=== PATIENT | female | born 1975 | race Caucasian/White ===

== ENCOUNTER → 2022-07-28 | Outpatient (CLI) | payer OTHER ==
[2022-07-30 19:07] LABS: HPV 16 Negative (Negative); HPV 18 Negative (Negative); HPV OTHER HR TYPES Positive (Negative)
== END | disposition home or self-care (01) ==
LOC: LAB SHORT 09:00 → LAB 09:00
PROVIDERS: Family Medicine
DX: Z01.419 Encounter for gynecological examination (general) (routine) without abnormal findings (principal)
CPT/HCPCS: 87624; 87625; 88142

== ENCOUNTER → 2022-10-28 | Outpatient (CLI) | payer OTHER ==
[2022-10-30 13:11] LABS: COTININE Negative ng/mL (Cutoff=300)
== END ==
LOC: LAB SHORT 11:50 → LAB 11:50 → EDSTATUS 10-27 08:30 → LAB FUT 10-27 08:30
PROVIDERS: Podiatrist Foot & Ankle Surgery
DX: Z87.891 Personal history of nicotine dependence (principal)

== ENCOUNTER 2022-12-28 11:25 | Day surgery (SDC) | payer OTHER ==
[~2022-12-28] VITALS: Ht 180.3 cm; Wt 82.1 kg
[2022-12-28] MEDS ORDERED: NAPROXEN500 MG PO (12:04)
[2022-12-28] MEDS ORDERED: TRAZ150T57 PO (12:04)
[2022-12-28] MEDS ORDERED: GABAPENTIN600 MG PO (12:04)
[2022-12-28] MEDS ORDERED: Methocarbamol500 MG PO (12:04)
[2022-12-28] MEDS ORDERED: SUMA6I SC (12:05)
[2022-12-28] MEDS ORDERED: ONDA4 PO (12:06)
[2022-12-28] MEDS ORDERED: OMEP20ER PO (12:06)
[2022-12-28] MEDS ORDERED: VARENICLINE TART1 M2 PO (12:10)
--- NOTE | 2022-12-28 13:16 | NUR ---
12/28/22 1316 THOR AIKEN 0.15MG OF EPI ADDED TO 30MLS OF ROPIVACAINE 0.5% TO CREATE A LOCAL SOLUTION OF ROPIVACAINE 0.5% WITH EPI 1:200,000.
--- NOTE | 2022-12-28 15:52 | NUR ---
12/28/22 1552 Manpreet Wheatley FENTANYL 25MCG GIVEN AT 1550 FOR LEFT FOOT PAIN AT 04/19.
== END 2022-12-28 17:27 | disposition home or self-care (01) ==
LOC: ORSCSDS 11:25
PROVIDERS: Podiatrist Foot & Ankle Surgery
PROC: 0SGJ04Z Fusion of Left Tarsal Joint with Internal Fixation Device, Open Approach (ICD-10-PCS; principal; 2022-12-28 12:45)
PROC: 0L8P0ZZ Division of Left Lower Leg Tendon, Open Approach (ICD-10-PCS; principal; 2022-12-28 12:45)
DX: M21.42 Flat foot [pes planus] (acquired), left foot (principal); M79.672 Pain in left foot; M19.072 Primary osteoarthritis, left ankle and foot; M24.572 Contracture, left ankle; J44.9 Chronic obstructive pulmonary disease, unspecified; Z87.891 Personal history of nicotine dependence; K21.9 Gastro-esophageal reflux disease without esophagitis; F32.A Depression, unspecified; Z79.899 Other long term (current) drug therapy
CPT/HCPCS: A9270; C1713; C1734; C1769; J0171; J0690; J1100; J1885; J2250; J2270; J2405; J2550; J2704; J2765; J2795; J3010; J7120

== ENCOUNTER 2023-06-17 06:30 | Day surgery (SDC) | payer OTHER ==
[~2023-06-17] VITALS: Ht 180.3 cm; Wt 83.2 kg
[2023-06-17] VITALS (12 sets, daily range): BP systolic 110–153; BP diastolic 61–89
[~2023-06-17 06:30] MED LIST: Ativan1 MG PO; GABAPENTIN600 MG PO; Methocarbamol500 MG PO; NAPROXEN500 MG PO; OMEP20ER PO; ONDA4 PO; SUMA6I SC; TRAZ150T57 PO; VARENICLINE TART1 M2 PO; VENL75ER PO; [UNRECOGNIZED DRUG - OTHER]
--- NOTE | 2023-06-17 07:48 | NUR ---
2 UNSUCCESSFUL IV ATTEMPTS IN [facility] PER THIS RN
--- NOTE | 2023-06-17 07:50 | NUR ---
Ambulatory in Day Surgery Patient confirms NPO status and agrees with scheduled surgery. Pre-Op teaching done. Pt verbalizes understanding. History, Chart, Medications and Allergies reviewed before start of procedure.Patient States Post-Procedure ride home has been arranged.
--- NOTE | 2023-06-17 09:48 | NUR ---
PT TO DAY SURGERY FROM PACU FOR STEP DOWN RECOVERY, REPORT RECEIVED FROM WALLY MONREAL. PT ALERT AND ORIENTED X3. PT ASKING FOR ICE CHIPS. REPORTS PAIN A 4; CAN FEEL INCISION SITES. 4 INCISIONS NOTED, CLOSED WITH SKIN ADHESIVE AND ALL 4 ARE C/D/I.
--- NOTE | 2023-06-17 10:03 | NUR ---
INCISIONS REMAIN UNCHANGED, ARE C/D/I. PT TOLERATING CRACKERS AND ICE CHIPS WELL. DESIRES TO GO HOME SOON.
--- NOTE | 2023-06-17 10:29 | NUR ---
Patient up to Ambulate independently. Gait steady. Discharge instructions reviewed with patient. Patient verbalizes understanding. Copy given to patient to take home. Patient States Post-Procedure ride home has been arranged. Discharged via wheelchair to private car for ride home.
--- NOTE | 2023-06-18 08:44 | NUR ---
06/18/23 0844 Anum Zepeda VERIFICATIONS: EDIT CHART.
== END 2023-06-17 10:32 | disposition home or self-care (01) ==
LOC: ORSCMMR 06:30 → ORD 08:00 → ORSCMMR 10:32
PROVIDERS: Surgery
PROC: 0FT44ZZ Resection of Gallbladder, Percutaneous Endoscopic Approach (ICD-10-PCS; principal; 2023-06-17 08:00)
PROC: BF031ZZ Plain Radiography of Gallbladder and Bile Ducts using Low Osmolar Contrast (ICD-10-PCS; principal; 2023-06-17 08:00)
DX: K80.10 Calculus of gallbladder with chronic cholecystitis without obstruction (principal); G61.0 Guillain-Barre syndrome; Z79.899 Other long term (current) drug therapy
CPT/HCPCS: 74300; 88304; A9270; J0690; J1100; J1885; J2250; J2405; J2704; J3010; J7120